=== PATIENT | male | born 1955 | race Two or more races ===

== ENCOUNTER 2019-11-22 10:07 | Inpatient (IN) | payer OTHER ==
[~2019-11-22] VITALS: Ht 185.4 cm; Wt 88.5 kg
== END 2019-11-23 17:51 | disposition home or self-care (01) | DRG 810 ==
LOC: ER 10:07 → SEC-K 14:36 → MEDI 14:36 → SEC-K 15:54 → MEDI 23:08 → MEDJ 23:08 → MEDI 11-23 17:51
PROVIDERS: ADMIT Internal Medicine; ATTEND Internal Medicine
PROC: 30233N1 Transfusion of Nonautologous Red Blood Cells into Peripheral Vein, Percutaneous Approach (ICD-10-PCS; principal; 2019-11-22)
PROC: BW40ZZZ Ultrasonography of Abdomen (ICD-10-PCS; 2019-11-23)
DX: D61.818 Other pancytopenia (principal); D64.9 Anemia, unspecified; Z20.828 Contact with and (suspected) exposure to other viral communicable diseases; Z86.19 Personal history of other infectious and parasitic diseases